=== PATIENT | female | born 2000 | race Caucasian/White ===

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

== ENCOUNTER 2019-02-17 08:36 | Emergency (ER) | payer MEDICAID ==
[~2019-02-17] VITALS: Ht 160 cm; Wt 65.9 kg
[~2019-02-17 08:36] MED LIST: AZIT250T PO
[2019-02-17] MEDS ORDERED: buprenorphine/naloxone 8mg/2mg SL tablet SL PRN (08:55)
[2019-02-17 09:00] VITALS: BP 117/56
== END 2019-02-17 09:56 | disposition home or self-care (01) ==
LOC: ER 08:36
DX: F11.23 Opioid dependence with withdrawal (principal); R11.0 Nausea; K30 Functional dyspepsia; R00.0 Tachycardia, unspecified; F41.9 Anxiety disorder, unspecified; F12.90 Cannabis use, unspecified, uncomplicated; Z51.81 Encounter for therapeutic drug level monitoring; Z79.2 Long term (current) use of antibiotics; Z88.8 Allergy status to other drugs, medicaments and biological substances
CPT/HCPCS: 99282; 99283

== ENCOUNTER 2019-02-23 10:41 | Emergency (ER) | payer MEDICAID ==
[~2019-02-23] VITALS: Ht 160 cm; Wt 70.0 kg
--- NOTE | 2019-02-23 10:57 | NUR ---
Pt reports receiving tetanus vaccine at age 15
[2019-02-23] MEDS ORDERED: LIDOcaine 1% w/epiNEPHrine 1:200,000 30ml vial IM ONE (11:05)
[2019-02-23] MEDS ORDERED: CEPH-572 PO (12:07)
[2019-02-23 12:17] VITALS: BP 113/65
== END 2019-02-23 12:16 | disposition home or self-care (01) ==
LOC: ER 10:42
DX: L02.413 Cutaneous abscess of right upper limb (principal); L03.113 Cellulitis of right upper limb; F19.90 Other psychoactive substance use, unspecified, uncomplicated; F17.200 Nicotine dependence, unspecified, uncomplicated; F12.90 Cannabis use, unspecified, uncomplicated; F15.90 Other stimulant use, unspecified, uncomplicated; F11.90 Opioid use, unspecified, uncomplicated; Z79.899 Other long term (current) drug therapy
CPT/HCPCS: 10060; 99284; J3490

== ENCOUNTER 2019-07-26 10:09 | Emergency (ER) | payer MEDICAID, OTHER ==
[~2019-07-26] VITALS: Ht 160 cm; Wt 71.0 kg
[2019-07-26 10:53] VITALS: BP 143/94
--- NOTE | 2019-07-26 11:02 | NUR ---
paTIENT ASSESSED AND GIVEN CALL LIGHT, STATED TO ME THAT SHE SHOOTS UP METH AND HEROIN, ADVISED PATIENT TO GIVE MD THIS INFO ALSO. VSS
== END 2019-07-26 11:22 | disposition home or self-care (01) ==
LOC: ER 10:09
DX: S90.425A Blister (nonthermal), left lesser toe(s), initial encounter (principal); S90.424A Blister (nonthermal), right lesser toe(s), initial encounter; B35.1 Tinea unguium; F12.90 Cannabis use, unspecified, uncomplicated; F15.90 Other stimulant use, unspecified, uncomplicated; F11.90 Opioid use, unspecified, uncomplicated; Z88.8 Allergy status to other drugs, medicaments and biological substances; X58.XXXA Exposure to other specified factors, initial encounter; Y93.89 Activity, other specified; Y92.89 Other specified places as the place of occurrence of the external cause; Y99.9 Unspecified external cause status
CPT/HCPCS: 99281

== ENCOUNTER 2019-08-01 13:25 | Emergency (ER) | payer MEDICAID, OTHER ==
[~2019-08-01] VITALS: Ht 160 cm; Wt 70.0 kg
[2019-08-01] MEDS ORDERED: LIDOcaine/epinephrine TOPICAL 5 ML BTL TOP ONE (14:15)
[2019-08-01] MEDS ORDERED: LORazepam 1 MG tablet PO ONE (14:15)
[2019-08-01] MEDS ORDERED: LIDOcaine 40mg/ml topical solution MM ONE (14:55)
[2019-08-01] MEDS ORDERED: LIDOcaine 4% (40 mg/ml) topical solution 50ml MM ONE (15:00)
[2019-08-01] MEDS ORDERED: BACDS PO (15:35)
[2019-08-01] MEDS ORDERED: sulfamethoxazole/trimethoprim DS (800/160mg) tablet PO ONE (15:35)
[2019-08-01] MEDS ORDERED: LIDOcaine 1% w/epiNEPHrine 1:200,000 30ml vial IM ONE (15:35)
[2019-08-01 15:44] VITALS: BP 138/60
== END 2019-08-01 15:54 | disposition home or self-care (01) ==
LOC: ER 13:25
DX: L02.31 Cutaneous abscess of buttock (principal); F12.90 Cannabis use, unspecified, uncomplicated; F15.90 Other stimulant use, unspecified, uncomplicated; F11.90 Opioid use, unspecified, uncomplicated; F17.200 Nicotine dependence, unspecified, uncomplicated; Z79.2 Long term (current) use of antibiotics; Z88.8 Allergy status to other drugs, medicaments and biological substances
CPT/HCPCS: 10061; 10160; 99284; J2001

== ENCOUNTER 2019-08-21 00:25 | Emergency (ER) | payer MEDICAID, OTHER ==
[~2019-08-21] VITALS: Ht 160 cm; Wt 63.6 kg
[2019-08-21 00:43] VITALS: BP 107/71
[2019-08-21 01:09] LABS: CLARITY,URINE SLIGHTLY CLOUDY (Clear); COLOR,URINE AMBER (Yellow); GLUCOSE, URINE NEGATIVE (Neg); KETONES,URINE TRACE mg/dl (Neg); LEUKOCYTE ESTERASE ,URINE NEGATIVE (Neg); NITRITES, URINE NEGATIVE (Neg); OCCULT BLOOD,URINE NEGATIVE (Neg); PH,URINE 6.5 (4.8-8.0); PROTEIN,URINE 30 mg/dl (Neg); UA COLLECTION TYPE CLN CATCH MIDSTREAM
[2019-08-21 01:10] LABS: URINE HCG NEGATIVE (NEG)
[2019-08-21 01:20] LABS: MUCUS STRANDS MANY /LPF (Neg); SQUAMOUS EPITHELIAL CELL,UR FEW /LPF (FEW)
[2019-08-21 01:22] LABS: BACTERIA,URINE FEW /HPF (Neg); RBC,URINE NONE SEEN /HPF (0-2)
[2019-08-21] MEDS ORDERED: METH-360 PO (01:36)
[2019-08-21] MEDS ORDERED: ketorolac tromethamine 15mg/ml inj. IM ONE (01:40)
== END 2019-08-21 01:52 | disposition home or self-care (01) ==
LOC: ER 00:26
DX: S29.019A Strain of muscle and tendon of unspecified wall of thorax, initial encounter (principal); S39.012A Strain of muscle, fascia and tendon of lower back, initial encounter; F12.90 Cannabis use, unspecified, uncomplicated; F15.90 Other stimulant use, unspecified, uncomplicated; F11.90 Opioid use, unspecified, uncomplicated; Z79.899 Other long term (current) drug therapy; X50.9XXA Other and unspecified overexertion or strenuous movements or postures, initial encounter; Y93.89 Activity, other specified; Y92.89 Other specified places as the place of occurrence of the external cause; Y99.8 Other external cause status
CPT/HCPCS: 81001; 81025; 87088; 96372; 99283; J1885

== ENCOUNTER 2019-09-07 23:09 | Emergency (ER) | payer MEDICAID, OTHER ==
[~2019-09-07] VITALS: Ht 160 cm; Wt 63.6 kg
[~2019-09-07 23:09] MED LIST changes: +METH-360 PO
[2019-09-07 23:15] VITALS: BP 124/69
[2019-09-07] MEDS ORDERED: TETanus/Pertussis (Acell)/Diphther VAC/PF (Tdap-Adult) 0.5ml syringe IMVAC ONE (23:55)
[2019-09-07] MEDS ORDERED: bacitracin 15gm ointment TP ONE (23:55)
[2019-09-07] MEDS ORDERED: LIDOcaine 1% W/epiNEPHrine 1:200,000 10ml vial IJ ONE (23:55)
[2019-09-08] MEDS ORDERED: SULF1TAB49 PO (00:16)
== END 2019-09-08 00:26 | disposition home or self-care (01) ==
LOC: ER 23:10
DX: L02.415 Cutaneous abscess of right lower limb (principal); F12.90 Cannabis use, unspecified, uncomplicated; F15.90 Other stimulant use, unspecified, uncomplicated; F11.90 Opioid use, unspecified, uncomplicated; Z88.6 Allergy status to analgesic agent
CPT/HCPCS: 10060; 90471; 90715; 99283